=== PATIENT | male | born 1955 | race Caucasian/White ===

== ENCOUNTER 2020-09-19 23:22 | Inpatient (IN) | payer OTHER ==
[~2020-09-19] VITALS: Ht 190.5 cm; Wt 98.0 kg
[2020-09-20] VITALS (63 sets, daily range): BP systolic 98–185; BP diastolic 54–117
[2020-09-20] MEDS ORDERED: HEPARIN-D5W 20,000 UNIT/500 ML 500 ML IV SCH (03:00)
[2020-09-20] MEDS ORDERED: HEPARIN-D5W 20,000 UNIT/500 ML 500 ML IV ONE (03:12)
[2020-09-20 03:50] LABS: BASOPHIL % 0.7 % (0.0-0.2); EOSINOPHIL # 0.2 10^3/uL (0.0-0.2); EOSINOPHIL % 5.8 % (0.0-5.0); LYMPHOCYTES # 1.38 10^3/uL1 (1.0-4.8); LYMPHOCYTES % 33.4 % (24.0-44.0); MEAN CORP HGB 31.3 pg (26-34); MONOCYTES # 0.6 10^3/uL (0.3-0.8); MONOCYTES % 15.5 % (5.0-12.0); NEUTROPHIL # 1.8 10^3/uL (1.8-7.7); NEUTROPHILS % 44.4 % (41.0-85.0); PLATELET COUNT 179 10^3/uL (150-400); RED CELL DISTRIBUTION WIDTH 15.5 % (11.5-14.5)
--- NOTE | 2020-09-20 03:55 | PCM.HP ---
History of Present Illness Reason for Visit: Syncopal episode History of Present Illness Mr. Mendieta is a 64 y/o man with a pmh of CAD s/p multiple stent placements, COPD on continuous oxygen, Atrial fibrillation previously on eliquis, hypertension, depression, hypothyroidism and a AAA repair in 2019 presenting due to a syncopal episode. Patient reports resting in his chair watching tv when he started to feel like he was going to pass out. This happened several times, especially when he stood up and he reports one episode of complete syncopy with no fall. He does fall often at baseline. He took his blood pressure at home and it was low in the 90s systolic. He went to the ED and was found to have elevated troponin. He denies any significant chest pain. Getting up quickly does aggravate the syncopal feeling. Past Medical History Cardiac: AFIB, CAD, HTN Pulmonary: COPD Psychiatric: Depression Rheumatologic: Other (ankylosing spondylitis ) Endocrine: Hypothyroidism Past Social History Smoke: 1 pack per day Alcohol: heavy Drugs: None Review of Systems Constitutional: No: Fever, Chills, Sweats Eyes: No: Pain, Eyelid inflammation ENT: No: Throat pain, Throat swelling Respiratory: No: Cough, Shortness of breath, SOB with excertion Cardiovascular: Palpitations, Lt Headedness Gastrointestinal: No: Nausea, Vomiting, Abdominal Pain Genitourinary: No Dysuria, No Frequency, No Incontinence Musculoskeletal: No: neck pain, back pain Skin: No: Rash, Lesions Neurological: No: Weakness, Change in speech VTE VTE Risk Score VTE Risk: Score 0-1 = Low Risk (Aggressive mobilization; early ambulation; no VTE prophylaxis required) Score 2: Moderate Risk (Intermittent/Pneumatic Compression Device OR Lovenox/Heparin/Coumadin) Score 3-4: High Risk (Intermittent/Pneumatic Compression Device AND Lovenox/Heparin/Coumadin) Score > or =5: Highest Risk (Intermittent/Pneumatic Compression Device AND Lovenox/Heparin/Coumadin) Exam Vital Signs Vital Signs Date Time Temp Pulse Resp B/P (MAP) Pulse Ox O2 Delivery O2 Flow Rate FiO2 09/20/20 03:34 Nasal Cannula 4.00 General Appearance: Alert, Oriented X3, Cooperative, No acute distress HEENT: Atraumatic, PERRLA, EOMI Respiratory: Other (diffuse expiratory wheezing. On supplemental oxygen ) Cardiovascular: Regular rate, No murmurs Abdominal: Normal bowel sounds, Soft Extremities: No cyanosis, No edema Skin: No rash, No breakdown, No lesions Neuro: Normal speech, Normal tone Psych/Mental Status: Mental status NL, Mood NL Assessment/Plan Assessment/Plan Assessment/Plan ASSESSMENT NTEMI CAD s/p multiple stent placements -last stent Sep 2019 Atrial Fibrillation -was previously on Eliquis End stage COPD with supplemental oxygen -2.5 L continuous Hypothyroidism AAA repair Sep 2019 Depression Alcohol use disorder -pint of vodka a day Tobacco use disorder Elevated Creatinine, unknown baseline Plan Start heparin ggt Aspirin daily PRN ativan for alcohol withdrawl, CIWA protocol PRN Duonebs for wheezing Oxygen supplemental as needed Tylenol PRN for pain NPO except for meds Morphine for pain control monitor on tele, now in sinus rhythm Cardiology consulted Code: DYLLAN Mark MD Sep 20, 2020 03:55
[2020-09-20 04:05] LABS: CALCIUM 8.3 mg/dL (8.4-10.5); CARBON DIOXIDE 30.8 mmol/L (20.0-32)
[2020-09-20] MEDS: THIAMINE HCL PO SCH (10:19)
[2020-09-20] MEDS: ASPIRIN PO SCH (10:19)
[2020-09-20] MEDS: FOLIC ACID PO SCH (10:19)
[2020-09-20] MEDS ORDERED: DILAUDID IV PRN (13:30)
[2020-09-20] MEDS ORDERED: FOLIC ACID IV SCH (13:30)
[2020-09-20] MEDS ORDERED: THIAMINE HCL IV SCH (13:30)
[2020-09-20] MEDS ORDERED: NS IV SCH (13:30)
[2020-09-20] MEDS ORDERED: INFUVITE ADULT IV SCH (13:30)
[2020-09-20] MEDS: MORPHINE SULFATE IV PRN ×2 (14:45→18:00)
[2020-09-20] MEDS: ATIVAN IV PRN (18:00)
[2020-09-20] MEDS: LIPITOR PO SCH (21:00)
[2020-09-20] MEDS: COREG PO SCH (21:00)
--- NOTE | 2020-09-20 23:28 | CNH ---
DATE OF CONSULTATION: 09/20/2020 DICTATOR NAME: LENA ADAME DO REASON FOR CONSULTATION: Acute non-ST elevation myocardial infarction/atrial fibrillation with rapid ventricular response. HISTORY OF PRESENT ILLNESS: This is a 64-year-old male who initially presented at the [facility] in [place] with recurrent syncopal episode and shortness of breath. Upon presentation to the ED at the [facility], he was noted to be in atrial fibrillation with rapid ventricular response. Initial EKG done at the [facility] revealed a heart rate of 142 beats per minute. He subsequently chemically converted after digoxin was administered. His troponins were noted to be elevated and so he was transferred over to [facility] for evaluation. He is currently in normal sinus rhythm. He has an extensive cardiac history with multiple PCIs in the past, x7 stents. He also has a history of AAA repair with what he describes as an endovascular stent graft done in 2019. Last PCI was in September 2019 as well. He is currently on heparin drip as well as aspirin 81 mg p.o. every day. PAST MEDICAL HISTORY: Significant for: 1. Paroxysmal atrial fibrillation. 2. Known history of CAD with multiple PCIs in the past, x7 stents. 3. Hypertension. 4. COPD. 5. Depression. 6. Hypothyroidism. 7. Ankylosing spondylitis. PAST SURGICAL HISTORY: 1. Abdominal aortic aneurysm, status post endovascular stent repair in September 2019. 2. Multiple cardiac catheterizations in the past, x7 stents. ALLERGIES: He has no known drug allergies. MEDICATIONS: Medications he takes at home are unknown. FAMILY HISTORY: He denies any family history of premature CAD or sudden cardiac . SOCIAL HISTORY: He admits to tobacco abuse, he smokes 1 pack of cigarettes daily. He admits to alcohol abuse. He drinks a pint of vodka a day. He denies illicit drug use. REVIEW OF SYSTEMS: As per HPI and as per previous records. All systems reviewed and negative for interval change. PHYSICAL EXAMINATION: VITAL SIGNS: Blood pressure is 185/101, respiratory rate is 17, pulse is 80, pulse oximetry is 90% on 4 liters. GENERAL: He is in no apparent distress, alert and oriented x3. HEENT: Normocephalic, atraumatic. Extraocular muscles intact. Pupils equally round, reactive to light and accommodation. CARDIAC: S1, S2. No gallops, murmurs, rubs, or clicks. LUNGS: Clear to auscultation bilaterally. No wheezing, rhonchi or rales. ABDOMEN: Abdomen is distended, positive ascites, nontender, positive bowel sounds. EXTREMITIES: No cyanosis, no clubbing, no edema, +2 pedal pulses palpable bilaterally. NEUROLOGIC: No neurological deficits. Sensation is intact. IMPRESSION: 1. Acute non-ST elevation myocardial infarction. 2. Paroxysmal atrial fibrillation -- currently in normal sinus rhythm. 3. Left ventricular ejection fraction of 45% on 2D echo done this admission. 4. Ischemic cardiomyopathy. 5. Hypertension. 6. Known history of CAD status post multiple PCIs in the past, x7 stents. 7. History of abdominal aortic aneurysm, status post endovascular stent repair. 8. Chronic obstructive pulmonary disease. 9. Depression. 10. Hypothyroidism. RECOMMENDATIONS: This is a 64-year-old male who was transferred from the [facility] to [facility] after he initially presented with atrial fibrillation with rapid ventricular response. He chemically converted after administration of digoxin in the [facility]. He was noted to have spilled troponins and so was transferred here for evaluation. He has a known history of CAD with multiple PCIs in the past, x7 stents. He also has a history of abdominal aortic aneurysm, status post endovascular stent repair. He is currently in normal sinus rhythm. I am going to trend his troponins out. He is also currently on aspirin 81 mg p.o. every day as well as heparin drip. His echocardiogram revealed left ventricular ejection fraction of 45%. He will be started on Coreg 12.5 mg p.o. b.i.d. as well as lisinopril 20 mg p.o. every day. He will also be started on Lipitor 20 mg p.o. at bedtime. He will be kept n.p.o. after midnight for left heart catheterization tomorrow. Eventually, he would benefit from oral anticoagulation for his history of paroxysmal atrial fibrillation given a CHADS2-VASc score of 4. Further recommendations will be made based on his overall clinical course. Fabian ORTIZ D.O. DR: KA/LAL TID: [id number] RECEIPT: [id number]
[2020-09-21] VITALS (71 sets, daily range): BP systolic 101–204; BP diastolic 52–114
[2020-09-21] MEDS: MORPHINE SULFATE IV PRN ×2 (01:52→21:22)
[2020-09-21] MEDS ORDERED: ATIVAN ONE (02:35)
[2020-09-21] MEDS: ATIVAN IV PRN ×2 (02:40→20:00)
[2020-09-21 05:24] LABS: BASOPHIL % 0.7 % (0.0-0.2); LYMPHOCYTES # 0.92 10^3/uL1 (1.0-4.8); LYMPHOCYTES % 21.1 % (24.0-44.0); MONOCYTES # 0.8 10^3/uL (0.3-0.8); MONOCYTES % 17.6 % (5.0-12.0); NEUTROPHIL # 2.6 10^3/uL (1.8-7.7); NEUTROPHILS % 60.4 % (41.0-85.0); PLATELET COUNT 150 10^3/uL (150-400); RED CELL DISTRIBUTION WIDTH 15.4 % (11.5-14.5)
[2020-09-21 05:41] LABS: CALCIUM 7.5 mg/dL (8.4-10.5); CARBON DIOXIDE 28.7 mmol/L (20.0-32)
[2020-09-21] MEDS ORDERED: SUBLIMAZE ONE ×2 (07:26→10:38)
[2020-09-21] MEDS ORDERED: HEPARIN ONE ×3 (07:26→19:12)
[2020-09-21] MEDS ORDERED: CARDENE-NACL 20 MG/200 ML SOLN 200 ML IV ONE (07:27)
[2020-09-21] MEDS ORDERED: XYLOCAINE ONE (07:27)
[2020-09-21] MEDS ORDERED: VERSED ONE (07:27)
[2020-09-21] MEDS ORDERED: NITROGLYCERIN 25MG/D5W 250ML 250 ML IV ONE (07:27)
--- NOTE | 2020-09-21 11:08 | PRM.PN ---
Subjective Subjective Date: Sep 21, 2020 Time: 11:07 Subjective Patient seen and examined this morning. Patient did not sleep all night and is lethargic after given ativan. Resting comfortably in bed on BiPAP. VTE VTE Risk Total Score: >5 VTE Risk Score VTE Risk: Score 0-1 = Low Risk (Aggressive mobilization; early ambulation; no VTE prophylaxis required) Score 2: Moderate Risk (Intermittent/Pneumatic Compression Device OR Lovenox/Heparin/Coumadin) Score 3-4: High Risk (Intermittent/Pneumatic Compression Device AND Lovenox/Heparin/Coumadin) Score > or =5: Highest Risk (Intermittent/Pneumatic Compression Device AND Lovenox/Heparin/Coumadin) Review of Systems Constitutional: No: Fever, Chills, Sweats Eyes: No: Pain, Eyelid inflammation ENT: No: Throat pain, Throat swelling Respiratory: No: Cough, Shortness of breath, SOB with excertion Cardiovascular: Palpitations, Lt Headedness Gastrointestinal: No: Nausea, Vomiting, Abdominal Pain Genitourinary: No Dysuria, No Frequency, No Incontinence Musculoskeletal: No: neck pain, back pain Skin: No: Rash, Lesions Neurological: No: Weakness, Change in speech Objective Vitals and I/O Vital Sign - Last 24 Hours 09/21/20 09/21/20 09/21/20 09/21/20 07:00 07:15 07:27 07:27 Pulse 87 87 77 77 Resp 10 8 20 22 B/P (MAP) 156/86 (109) 149/79 (102) Pulse Ox 96 96 92 92 O2 Delivery Bi Pap Bi Pap S/T Bi-pap FiO2 40 40 09/21/20 09/21/20 09/21/20 09/21/20 07:30 07:45 08:00 08:15 Pulse 78 75 71 68 Resp 7 10 10 9 B/P (MAP) 130/87 (101) 126/63 (84) 150/66 (94) 114/77 (89) Pulse Ox 91 91 91 93 O2 Delivery Bi Pap Bi Pap Bi Pap Bi Pap 09/21/20 09/21/20 09/21/20 09/21/20 08:30 08:45 08:56 09:00 Temp 97.3 Pulse 66 65 63 Resp 10 10 9 B/P (MAP) 119/64 (82) 124/66 (85) 126/71 (89) Pulse Ox 94 95 95 O2 Delivery Bi Pap Bi Pap Bi-pap Bi Pap O2 Flow Rate 4.00 09/21/20 09/21/20 09/21/20 09/21/20 09:15 09:30 09:45 10:00 Pulse 59 66 63 62 Resp 11 11 10 11 B/P (MAP) 130/86 (101) 155/106 (122) 143/83 (103) 140/74 (96) Pulse Ox 98 96 96 96 O2 Delivery Bi Pap Bi Pap Bi Pap Bi Pap 09/21/20 09/21/20 10:15 10:17 Pulse 71 73 Resp 11 18 B/P (MAP) 164/101 (122) Pulse Ox 97 96 O2 Delivery Bi Pap Bi Pap General: Alert, Oriented X3, Cooperative, No acute distress HEENT: Atraumatic, PERRLA, EOMI Lungs: Other (diffuse expiratory wheezing. On supplemental oxygen ) Heart: Regular rate, No murmurs Abdomen: Normal bowel sounds, Soft Extremities: No cyanosis, No edema Neuro: Normal speech, Normal tone Psych/Mental Status: Mental status NL, Mood NL All Results(Lab/Rad) Laboratory Tests Test 09/20/20 13:25 09/20/20 18:25 09/20/20 21:30 09/20/20 22:28 Activated Partial Thromboplast Time 32.7 SEC 34.2 SEC 29.0 SEC Troponin I 0.16 ng/mL Test 09/21/20 02:15 09/21/20 04:55 Activated Partial Thromboplast Time 32.9 SEC Troponin I 0.17 ng/mL White Blood Count 4.4 10^3/uL Red Blood Count 4.06 10^6/uL Hemoglobin 12.6 g/dL Hematocrit 40.7 % Mean Corpuscular Volume 100.2 fL Mean Corpuscular Hemoglobin 31.0 pg Mean Corpuscular Hemoglobin Concent 31.0 g/dL Red Cell Distribution Width 15.4 % Platelet Count 150 10^3/uL Mean Platelet Volume 11.0 fL Neutrophils (%) (Auto) 60.4 % Lymphocytes (%) (Auto) 21.1 % Monocytes (%) (Auto) 17.6 % Neutrophils # (Auto) 2.6 10^3/uL Lymphocytes # (Auto) 0.92 10^3/uL1 Monocytes # (Auto) 0.8 10^3/uL Absolute Immature Granulocyte (auto 0.01 10^3 u/L Absolute Eosinophils (auto) 0.0 10^3/uL Immature Granulocytes % 0.20 % Eosinophils % 0.0 % Basophils % 0.7 % Basophils # 0.0 10^3/uL Sodium Level 137 mmol/L Potassium Level 4.0 mmol/L Chloride Level 104.0 mmol/L Carbon Dioxide Level 28.7 mmol/L Anion Gap 8.3 Blood Urea Nitrogen 17 mg/dL Creatinine 0.77 mg/dL Estimated GFR () 122.3 Est GFR (CKD-EPI)(Non-Afr Dominican) 101.1 BUN/Creatinine Ratio 22.0 Glucose Level 112 mg/dL Calcium Level 7.5 mg/dL Total Bilirubin 0.4 mg/dL Aspartate Amino Transf (AST/SGOT) 20 U/L Alanine Aminotransferase (ALT/SGPT) 20 U/L Alkaline Phosphatase 65 U/L Total Protein 6.3 g/dL Albumin 3.0 g/dL Globulin 3.3 Albumin/Globulin Ratio 0.909 Current Medications Medications (Trade) Dose Ordered Sig/Gala Route PRN Reason Start Time Stop Time Status Last Admin Dose Admin Heparin Sodium/ Dextrose 500 ml @ ud STK-MED ONCE IV 09/20/20 03:12 09/20/20 03:12 DC Aspirin (Aspirin) 81 mg DAILY PO 09/20/20 09:00 10/20/20 08:59 09/20/20 10:19 Lorazepam (Ativan) 1 mg Q4H PRN IV CIWA score >8 09/20/20 04:00 10/20/20 03:59 09/21/20 02:40 Thiamine HCl (Thiamine HCl) 100 mg DAILY PO 09/20/20 09:00 10/20/20 08:59 09/20/20 10:19 Folic Acid (Folic Acid) 1 mg DAILY PO 09/20/20 09:00 10/20/20 08:59 09/20/20 10:19 Albuterol/ Ipratropium (Duo 0.5-3(2.5) Mg/3 ml) 3 ml RTQ4 PRN IH Shortness of breath/wheezing 09/20/20 04:00 10/20/20 03:59 Heparin Sodium/ Dextrose 500 ml @ 0 mls/hr TITRATE IV 09/20/20 03:00 10/20/20 02:59 09/20/20 04:26 Thiamine HCl 100 mg/Folic Acid 1 mg/Multivit Infusn,Adult 4,Vit K 10 ml/ Sodium Chloride 1,011.2 ml @ 100 mls/ hr Q10H7M IV 09/20/20 13:30 09/20/20 23:36 DC 09/20/20 13:30 Morphine Sulfate (Morphine Sulfate) 2 mg Q4H PRN IV PAIN 4 - 6 09/20/20 13:30 10/20/20 13:29 09/21/20 01:52 Hydromorphone HCl (Dilaudid) 0.5 mg Q6HR PRN IV PAIN 7 - 10 09/20/20 13:30 10/20/20 13:29 09/21/20 01:30 Carvedilol (Coreg) 12.5 mg BID PO 09/20/20 21:00 10/20/20 20:59 09/20/20 21:00 Lisinopril (Zestril) 20 mg DAILY PO 09/21/20 09:00 10/21/20 08:59 Atorvastatin Calcium (Lipitor) 20 mg HS PO 09/20/20 21:00 10/20/20 20:59 09/20/20 21:00 Lorazepam (Ativan) 2 mg STK-MED ONCE .ROUTE 09/21/20 02:35 09/21/20 02:35 DC Heparin Sodium/ Sodium Chloride 1,500 ml @ ud STK-MED ONCE IV 09/21/20 07:26 09/21/20 07:27 DC Heparin Sodium (Porcine) (Heparin) 5,000 unit STK-MED ONCE .ROUTE 09/21/20 07:26 09/21/20 07:27 DC Fentanyl Citrate (Sublimaze) 50 mcg STK-MED ONCE .ROUTE 09/21/20 07:26 09/21/20 07:27 DC Lidocaine HCl (Xylocaine) 20 mg STK-MED ONCE .ROUTE 09/21/20 07:27 09/21/20 07:27 DC Nitroglycerin/ Dextrose 250 ml @ ud STK-MED ONCE IV 09/21/20 07:27 09/21/20 07:27 DC Fentanyl Citrate (Sublimaze) 50 mcg STK-MED ONCE .ROUTE 09/21/20 10:38 09/21/20 10:39 DC Course Sepsis Screening Results: Posi: POSITIVE Sepsis Qualifier/Stage: SEPSIS RISK Vitals & review Data Vital Sign - Last 24 Hours 09/21/20 09/21/20 09/21/20 09/21/20 07:00 07:15 07:27 07:27 Pulse 87 87 77 77 Resp 10 8 22 B/P (MAP) 156/86 (109) 149/79 (102) Pulse Ox 96 96 92 92 O2 Delivery Bi Pap Bi Pap S/T Bi-pap FiO2 40 40 09/21/20 09/21/20 09/21/20 09/21/20 07:30 07:45 08:00 08:15 Pulse 78 75 71 68 Resp 7 10 10 9 B/P (MAP) 130/87 (101) 126/63 (84) 150/66 (94) 114/77 (89) Pulse Ox 91 91 91 93 O2 Delivery Bi Pap Bi Pap Bi Pap Bi Pap 09/21/20 09/21/20 09/21/20 09/21/20 08:30 08:45 08:56 09:00 Temp 97.3 Pulse 66 65 63 Resp 10 10 9 B/P (MAP) 119/64 (82) 124/66 (85) 126/71 (89) Pulse Ox 94 95 95 O2 Delivery Bi Pap Bi Pap Bi-pap Bi Pap O2 Flow Rate 4.00 09/21/20 09/21/20 09/21/20 09/21/20 09:15 09:30 09:45 10:00 Pulse 59 66 63 62 Resp 11 11 10 11 B/P (MAP) 130/86 (101) 155/106 (122) 143/83 (103) 140/74 (96) Pulse Ox 98 96 96 96 O2 Delivery Bi Pap Bi Pap Bi Pap Bi Pap 09/21/20 09/21/20 10:15 10:17 Pulse 71 73 Resp 11 18 B/P (MAP) 164/101 (122) Pulse Ox 97 96 O2 Delivery Bi Pap Bi Pap Laboratory Tests Test 09/20/20 03:20 09/20/20 08:15 09/20/20 13:25 09/20/20 18:25 White Blood Count 4.1 10^3/uL Red Blood Count 4.35 10^6/uL Hemoglobin 13.6 g/dL Hematocrit 43.0 % Mean Corpuscular Volume 98.9 fL Mean Corpuscular Hemoglobin 31.3 pg Mean Corpuscular Hemoglobin Concent 31.6 g/dL Red Cell Distribution Width 15.5 % Platelet Count 179 10^3/uL Mean Platelet Volume 11.0 fL Neutrophils (%) (Auto) 44.4 % Lymphocytes (%) (Auto) 33.4 % Monocytes (%) (Auto) 15.5 % Neutrophils # (Auto) 1.8 10^3/uL Lymphocytes # (Auto) 1.38 10^3/uL1 Monocytes # (Auto) 0.6 10^3/uL Absolute Immature Granulocyte (auto 0.01 10^3 u/L Absolute Eosinophils (auto) 0.2 10^3/uL Immature Granulocytes % 0.20 % Eosinophils % 5.8 % Basophils % 0.7 % Basophils # 0.0 10^3/uL Sodium Level 134 mmol/L Potassium Level 4.6 mmol/L Chloride Level 100.0 mmol/L Carbon Dioxide Level 30.8 mmol/L Anion Gap 7.8 Blood Urea Nitrogen 23 mg/dL Creatinine 1.41 mg/dL Estimated GFR () 60.8 Est GFR (CKD-EPI)(Non-Afr Dominican) 50.3 BUN/Creatinine Ratio 16.0 Glucose Level 118 mg/dL Calcium Level 8.3 mg/dL Total Bilirubin 0.7 mg/dL Aspartate Amino Transf (AST/SGOT) 31 U/L Alanine Aminotransferase (ALT/SGPT) 21 U/L Alkaline Phosphatase 75 U/L Troponin I 0.42 ng/mL Total Protein 6.5 g/dL Albumin 3.1 g/dL Globulin 3.4 Albumin/Globulin Ratio 0.911 Triglycerides Level 63 mg/dL Cholesterol Level 162 mg/dL LDL Cholesterol, Calculated 64.4 VLDL Cholesterol, Calculated 12.6 HDL Cholesterol 85 mg/dL Cholesterol Ratio (LDL/HDL) 0.7 Cholesterol/HDL Ratio [id number] Activated Partial Thromboplast Time 30.3 SEC 32.7 SEC 34.2 SEC Test 09/20/20 21:30 09/20/20 22:28 09/21/20 02:15 09/21/20 04:55 Troponin I 0.16 ng/mL 0.17 ng/mL Activated Partial Thromboplast Time 29.0 SEC 32.9 SEC White Blood Count 4.4 10^3/uL Red Blood Count 4.06 10^6/uL Hemoglobin 12.6 g/dL Hematocrit 40.7 % Mean Corpuscular Volume 100.2 fL Mean Corpuscular Hemoglobin 31.0 pg Mean Corpuscular Hemoglobin Concent 31.0 g/dL Red Cell Distribution Width 15.4 % Platelet Count 150 10^3/uL Mean Platelet Volume 11.0 fL Neutrophils (%) (Auto) 60.4 % Lymphocytes (%) (Auto) 21.1 % Monocytes (%) (Auto) 17.6 % Neutrophils # (Auto) 2.6 10^3/uL Lymphocytes # (Auto) 0.92 10^3/uL1 Monocytes # (Auto) 0.8 10^3/uL Absolute Immature Granulocyte (auto 0.01 10^3 u/L Absolute Eosinophils (auto) 0.0 10^3/uL Immature Granulocytes % 0.20 % Eosinophils % 0.0 % Basophils % 0.7 % Basophils # 0.0 10^3/uL Sodium Level 137 mmol/L Potassium Level 4.0 mmol/L Chloride Level 104.0 mmol/L Carbon Dioxide Level 28.7 mmol/L Anion Gap 8.3 Blood Urea Nitrogen 17 mg/dL Creatinine 0.77 mg/dL Estimated GFR () 122.3 Est GFR (CKD-EPI)(Non-Afr Dominican) 101.1 BUN/Creatinine Ratio 22.0 Glucose Level 112 mg/dL Calcium Level 7.5 mg/dL Total Bilirubin 0.4 mg/dL Aspartate Amino Transf (AST/SGOT) 20 U/L Alanine Aminotransferase (ALT/SGPT) 20 U/L Alkaline Phosphatase 65 U/L Total Protein 6.3 g/dL Albumin 3.0 g/dL Globulin 3.3 Albumin/Globulin Ratio 0.909 Current Medications Medications (Trade) Dose Ordered Sig/Gala PRN Reason Start Time Stop Time Status Last Admin Albuterol/ Ipratropium (Duo 0.5-3(2.5) Mg/3 ml) 3 ml RTQ4 PRN Shortness of breath/wheezing 09/20/20 04:00 10/20/20 03:59 Aspirin (Aspirin) 81 mg DAILY 09/20/20 09:00 10/20/20 08:59 09/20/20 10:19 Atorvastatin Calcium (Lipitor) 20 mg HS 09/20/20 21:00 10/20/20 20:59 09/20/20 21:00 Carvedilol (Coreg) 12.5 mg BID 09/20/20 21:00 10/20/20 20:59 09/20/20 21:00 Folic Acid (Folic Acid) 1 mg DAILY 09/20/20 09:00 10/20/20 08:59 09/20/20 10:19 Heparin Sodium/ Dextrose 500 ml @ 0 mls/hr TITRATE 09/20/20 03:00 10/20/20 02:59 09/20/20 04:26 Hydromorphone HCl (Dilaudid) 0.5 mg Q6HR PRN PAIN 7 - 10 09/20/20 13:30 10/20/20 13:29 09/21/20 01:30 Lisinopril (Zestril) 20 mg DAILY 09/21/20 09:00 10/21/20 08:59 Lorazepam (Ativan) 1 mg Q4H PRN CIWA score >8 09/20/20 04:00 10/20/20 03:59 09/21/20 02:40 Morphine Sulfate (Morphine Sulfate) 2 mg Q4H PRN PAIN 4 - 6 09/20/20 13:30 10/20/20 13:29 09/21/20 01:52 Thiamine HCl (Thiamine HCl) 100 mg DAILY 09/20/20 09:00 10/20/20 08:59 09/20/20 10:19 LEVEL 1 SEPSIS INFECTION CRITE: Cough/Shortness of Breath LEVEL 2-SIRS (LIST ALL THAT AP: None/Not assessed Cardiovascular Evidence: Not Assessed or None Hematologic Evidence: None/Not assessed Hepatic Evidence: None/Not assessed Metabolic Evidence: None/Not assessed Neurological Evidence: None/Not assessed Respiratory Evidence: New Prescr. BIPAP Renal Evidence: None/Not assessed O2 Sat by Pulse Oximetry: 96 Oxygen Flow Rate: 4.00 Assessment/Plan Assessment/Plan Plan ASSESSMENT NTEMI CAD s/p multiple stent placements -last stent Sep 2019 Atrial Fibrillation -was previously on Eliquis End stage COPD with supplemental oxygen -2.5 L continuous Hypothyroidism AAA repair Sep 2019 Depression Alcohol use disorder -pint of vodka a day Tobacco use disorder Elevated Creatinine, unknown baseline Plan Start heparin ggt Aspirin daily PRN ativan for alcohol withdrawl, CIWA protocol PRN Duonebs for wheezing Oxygen supplemental as needed Tylenol PRN for pain NPO except for meds Morphine for pain control monitor on tele, now in sinus rhythm Cardiology consulted Code: Full Dispo: [facility] this afternoon DYLLAN HANSEN MD Sep 21, 2020 11:08
[2020-09-21] MEDS: COREG PO SCH ×2 (11:52→21:00)
[2020-09-21] MEDS: ZESTRIL PO SCH (11:52)
[2020-09-21] MEDS: FOLIC ACID PO SCH (11:52)
[2020-09-21] MEDS: ASPIRIN PO SCH (11:52)
[2020-09-21] MEDS: THIAMINE HCL PO SCH (11:52)
[2020-09-21] MEDS: DUO 0.5-3(2.5) MG/3 ML IH PRN (16:18)
[2020-09-21] MEDS ORDERED: NS 1000ML 1,000 ML ONE (17:30)
[2020-09-21] MEDS ORDERED: PLAVIX ONE (19:09)
[2020-09-21] MEDS ORDERED: ASPIRIN ONE (19:09)
[2020-09-21] MEDS: LIPITOR PO SCH (21:00)
--- NOTE | 2020-09-21 21:24 | CCRH ---
DATE OF SERVICE: 09/21/2020 DICTATOR NAME: LENA ADAME, CARDIAC CATHETERIZATION INDICATIONS: Cardiomyopathy/atrial fibrillation. This is a 64-year-old male who was transferred out to [facility] from the [facility] with atrial fibrillation and rapid ventricular response. Echo shows left ventricular ejection fraction of 45%. He was then set up for left heart catheterization after informed consents were obtained. PROCEDURES PERFORMED: 1. Severe stenosis (80%) of the obtuse marginal 1 artery, status post successful percutaneous coronary intervention with a Resolute [place] 2.25 x 18 mm drug-eluting stent. 2. Selective coronary angiography. 3. Left ventriculography. 4. Hemostasis established using a TR band. DESCRIPTION OF PROCEDURE: Access was obtained using a 6-[place] glide sheath to cannulate the right radial artery. Diagnostic angiography was then carried out using a [place] 4 catheter to engage the left main. Left main was noted to be angiographically normal. It trifurcates into a left anterior descending artery, a ramus intermedius branch and a left circumflex artery. The left anterior descending artery is noted to have a 40-50% in-stent restenotic lesion in the proximal segment. It runs in the interventricular groove reaching the apex to form a type 2 LAD. It gives off 2 diagonal branches that are noted to have mild luminal irregularities. The stents in the mid segment of the LAD are noted to be widely patent. The ramus intermedius branch has a proximal 40-50% lesion. The remaining segments of the ramus intermedius branch are noted to be with mild luminal irregularities. The lesion in the proximal segment of the ramus intermedius is in-stent restenotic lesion. Left circumflex artery is noted to be nondominant. It gives off a large caliber obtuse marginal 1 branch that has a proximal 80% lesion. The [place] 4 catheter was then used to engage the RCA. RCA angiography showed a dominant RCA with a proximal 50% lesion. The RCA bifurcates distally to a right posterolateral branch and a right posterior descending artery. Both branches are noted to have mild luminal irregularities. There is a stent in the mid RCA, which is noted to have mild luminal irregularities. The [place] 4 catheter was then used to cross the aortic valve into the left ventricle. Left ventriculography was performed. LVEF was noted to be 45%. LVEDP was noted to be 10. Upon pullback of the [place] 4 catheter, there was no gradient across the aortic valve. At this point, I elected to intervene in the obtuse marginal 1 branch. The [place] 4 catheter was then exchanged for an EBU 3.5 guide catheter, which was used to engage the left main. A Run[place] wire was then introduced into the left circumflex artery crossing the lesion in the obtuse marginal 1 branch. The lesion was then treated with direct stenting using a Resolute [place] 2.25 x 18 mm drug-eluting stent. The stent was successfully deployed. [place] 3 flow was maintained in the left circumflex artery. The stent was noted to be well opposed to the wall of the vessel with 0% residual stenosis. The wire and the guide were subsequently removed and hemostasis was established using a TR band. The patient left the prosthetics lab technician in stable condition. There were no complications. IMPRESSION: 1. Severe stenosis (80%) of the obtuse marginal 1 artery, status post successful percutaneous coronary intervention with a drug-eluting stent. 2. Selective coronary angiography. 3. Left ventriculography. 4. Left ventricular ejection fraction of 45%. 5. Left ventricular end-diastolic pressure of 10. 6. Ischemic cardiomyopathy. 7. Hemostasis established using a TR band. RECOMMENDATIONS: The patient is to remain on dual antiplatelet therapy as well as statin therapy going forward. Lifestyle modification factors including alcohol cessation have been strongly advised. He can be discharged home tomorrow from a cardiac standpoint to follow up with me in the office in 2 to 3 weeks. Fabian ORTIZ D.O. DR: SEMAJ TID: [id number] RECEIPT: [id number]
[2020-09-21] MEDS ORDERED: DUO 0.5-3(2.5) MG/3 ML IH PRN (23:30)
[2020-09-22] VITALS (17 sets, daily range): BP systolic 101–171; BP diastolic 47–99
[2020-09-22] MEDS: MORPHINE SULFATE IV PRN
[2020-09-22] MEDS: ATIVAN IV PRN
[2020-09-22] MEDS: DUO 0.5-3(2.5) MG/3 ML IH PRN (00:35)
[2020-09-22 04:56] LABS: BASOPHIL % 0.9 % (0.0-0.2); EOSINOPHIL # 0.1 10^3/uL (0.0-0.2); EOSINOPHIL % 1.4 % (0.0-5.0); LYMPHOCYTES # 0.92 10^3/uL1 (1.0-4.8); LYMPHOCYTES % 21.2 % (24.0-44.0); MEAN CORP HGB 32.1 pg (26-34); MONOCYTES # 0.8 10^3/uL (0.3-0.8); MONOCYTES % 18.7 % (5.0-12.0); NEUTROPHIL # 2.5 10^3/uL (1.8-7.7); NEUTROPHILS % 57.8 % (41.0-85.0); PLATELET COUNT 110 10^3/uL (150-400); RED CELL DISTRIBUTION WIDTH 15.5 % (11.5-14.5)
[2020-09-22 05:14] LABS: CALCIUM 6.1 mg/dL (8.4-10.5); CARBON DIOXIDE 27.2 mmol/L (20.0-32)
[2020-09-22] MEDS ORDERED: POTASSIUM CHLORIDE PO STA (08:23)
[2020-09-22] MEDS: COREG PO SCH (08:34)
[2020-09-22] MEDS: ASPIRIN PO SCH (08:34)
--- NOTE | 2020-09-22 08:34 | NUR ---
DISCHARGE PLANNING CM VISITED WITH PATIENT ABOUT DISCHARGE PLANS AND NEEDS. PATIENT CURRENTLY [email or web address] WITH SPOUSE AND IND WITH ALL ADL. PATIENT SEES DR Luiza VICTORIA AND [email or web address]. PATIENT HAS HOME O2 THAT HE WEARS NEEDED @2 1/2L AND HAS A NEBULIZER, WALKER, WHEELCHAIR, AND SHOWER CHAIR. EDUCATED ON SERVICES PROVIDED AND DENIES ANY NEEDS AND SIGNS [facility]. PATIENT PLANS TO DISCHARGE HOME WITH SPOUSE AND SELF CARE @DISCHARGE.
[2020-09-22] MEDS: THIAMINE HCL PO SCH (08:35)
[2020-09-22] MEDS: ZESTRIL PO SCH (08:35)
[2020-09-22] MEDS: FOLIC ACID PO SCH (08:35)
[2020-09-22] MEDS ORDERED: PLAVIX PO SCH (09:00)
[2020-09-22] MEDS ORDERED: ASPI-667 PO (10:25)
[2020-09-22] MEDS ORDERED: CLOP75TA PO (10:25)
[2020-09-22] MEDS ORDERED: Thiamine Hcl PO (10:25)
[2020-09-22] MEDS ORDERED: Folic Acid PO (10:25)
[2020-09-22] MEDS ORDERED: ATOR20TA PO (10:25)
[2020-09-22] MEDS ORDERED: CARV12.5 PO (10:25)
[2020-09-22] MEDS ORDERED: LISI20TA21 PO (10:25)
--- NOTE | 2020-09-22 11:03 | PRM.DC ---
Discharge Summary Date of Discharge: Sep 22, 2020 Time of Request to Discharge: 10:00 Reason for Visit: Elevated troponin Hospital Course 64-year-old male who was transferred from the [facility] to [facility] after he initially presented with atrial fibrillation with rapid ventricular response. He chemically converted after administration of digoxin in the [facility]. He was noted to have spilled troponins and so was transferred here for evaluation. He has a known history of CAD with multiple PCIs in the past, x7 stents. Patient was seen by technology sales consultant, patient underwent left heart cath: Assessment and recommendations as per technology sales consultant:1. Severe stenosis (80%) of the obtuse marginal 1 artery, status post successful percutaneous coronary intervention with a drug-eluting stent. 2. Selective coronary angiography. 3. Left ventriculography. 4. Left ventricular ejection fraction of 45%. 5. Left ventricular end-diastolic pressure of 10. 6. Ischemic cardiomyopathy. 7. Hemostasis established using a TR band. RECOMMENDATIONS: The patient is to remain on dual antiplatelet therapy as well as statin therapy going forward. Lifestyle modification factors including alcohol cessation have been strongly advised. He can be discharged home tomorrow from a cardiac standpoint to follow up with me in the office in 2 to 3 weeks. Today patient is feeling fine. Denies chest pain. Patient will be discharged home and follow-up in technology sales consultant office in 2 to 3 weeks. Patient will be discharged home. Patient discharged in stable condition. Activity As per technology sales consultant recommendation.t Diet heart healthy. Exam/Vitals Blood pressure 120/60, heart rate 60, respiratory rate 14, temperature 98. General: Alert, Oriented X3 HEENT: Atraumatic, PERRLA Neck: Supple, No JVD Lungs: Clear to auscultation, Normal air movement Heart: Regular rate, Normal S1, Normal S2 Abdomen: Normal bowel sounds, Soft, No tenderness Extremities: No clubbing, No cyanosis Skin: No breakdown Neuro: Normal gait, Normal speech Psych/Mental Status: Mental status NL, Mood NL Scheduled Aspirin (Aspirin), 81 MG PO DAILY Atorvastatin 20MG (Lipitor 20MG), 20 MG PO HS Carvedilol 12.5MG (Coreg 12.MG), 12.5 MG PO BID Clopidogrel Bisulfate (Clopidogrel), 75 MG PO DAILY Lisinopril (Lisinopril), 20 MG PO DAILY [Folic Acid], 1 MG PO DAILY [Thiamine Hcl], 100 MG PO DAILY Sepsis Evaluation @ Discharge Vital Sign - Last 24 Hours 09/21/20 09/21/20 09/21/20 09/21/20 07:00 07:15 07:27 07:27 Pulse 87 87 77 77 Resp 10 8 20 22 B/P (MAP) 156/86 (109) 149/79 (102) Pulse Ox 96 96 92 92 O2 Delivery Bi Pap Bi Pap S/T Bi-pap FiO2 40 40 09/21/20 09/21/20 09/21/20 09/21/20 07:30 07:45 08:00 08:15 Pulse 78 75 71 68 Resp 7 10 10 9 B/P (MAP) 130/87 (101) 126/63 (84) 150/66 (94) 114/77 (89) Pulse Ox 91 91 91 93 O2 Delivery Bi Pap Bi Pap Bi Pap Bi Pap 09/21/20 09/21/20 09/21/20 09/21/20 08:30 08:45 08:56 09:00 Temp 97.3 Pulse 66 65 63 Resp 10 10 9 B/P (MAP) 119/64 (82) 124/66 (85) 126/71 (89) Pulse Ox 94 95 95 O2 Delivery Bi Pap Bi Pap Bi-pap Bi Pap O2 Flow Rate 4.00 09/21/20 09/21/20 09/21/20 09/21/20 09:15 09:30 09:45 10:00 Pulse 59 66 63 62 Resp 11 11 10 11 B/P (MAP) 130/86 (101) 155/106 (122) 143/83 (103) 140/74 (96) Pulse Ox 98 96 96 96 O2 Delivery Bi Pap Bi Pap Bi Pap Bi Pap 09/21/20 09/21/20 10:15 10:17 Pulse 71 73 Resp 11 18 B/P (MAP) 164/101 (122) Pulse Ox 97 96 O2 Delivery Bi Pap Bi Pap Laboratory Tests Test 09/20/20 03:20 09/20/20 08:15 09/20/20 13:25 09/20/20 18:25 White Blood Count 4.1 10^3/uL Red Blood Count 4.35 10^6/uL Hemoglobin 13.6 g/dL Hematocrit 43.0 % Mean Corpuscular Volume 98.9 fL Mean Corpuscular Hemoglobin 31.3 pg Mean Corpuscular Hemoglobin Concent 31.6 g/dL Red Cell Distribution Width 15.5 % Platelet Count 179 10^3/uL Mean Platelet Volume 11.0 fL Neutrophils (%) (Auto) 44.4 % Lymphocytes (%) (Auto) 33.4 % Monocytes (%) (Auto) 15.5 % Neutrophils # (Auto) 1.8 10^3/uL Lymphocytes # (Auto) 1.38 10^3/uL1 Monocytes # (Auto) 0.6 10^3/uL Absolute Immature Granulocyte (auto 0.01 10^3 u/L Absolute Eosinophils (auto) 0.2 10^3/uL Immature Granulocytes % 0.20 % Eosinophils % 5.8 % Basophils % 0.7 % Basophils # 0.0 10^3/uL Sodium Level 134 mmol/L Potassium Level 4.6 mmol/L Chloride Level 100.0 mmol/L Carbon Dioxide Level 30.8 mmol/L Anion Gap 7.8 Blood Urea Nitrogen 23 mg/dL Creatinine 1.41 mg/dL Estimated GFR () 60.8 Est GFR (CKD-EPI)(Non-Afr [place]) 50.3 BUN/Creatinine Ratio 16.0 Glucose Level 118 mg/dL Calcium Level 8.3 mg/dL Total Bilirubin 0.7 mg/dL Aspartate Amino Transf (AST/SGOT) 31 U/L Alanine Aminotransferase (ALT/SGPT) 21 U/L Alkaline Phosphatase 75 U/L Troponin I 0.42 ng/mL Total Protein 6.5 g/dL Albumin 3.1 g/dL Globulin 3.4 Albumin/Globulin Ratio 0.911 Triglycerides Level 63 mg/dL Cholesterol Level 162 mg/dL LDL Cholesterol, Calculated 64.4 VLDL Cholesterol, Calculated 12.6 HDL Cholesterol 85 mg/dL Cholesterol Ratio (LDL/HDL) 0.7 Cholesterol/HDL Ratio [id number] Activated Partial Thromboplast Time 30.3 SEC 32.7 SEC 34.2 SEC Test 09/20/20 21:30 09/20/20 22:28 09/21/20 02:15 09/21/20 04:55 Troponin I 0.16 ng/mL 0.17 ng/mL Activated Partial Thromboplast Time 29.0 SEC 32.9 SEC White Blood Count 4.4 10^3/uL Red Blood Count 4.06 10^6/uL Hemoglobin 12.6 g/dL Hematocrit 40.7 % Mean Corpuscular Volume 100.2 fL Mean Corpuscular Hemoglobin 31.0 pg Mean Corpuscular Hemoglobin Concent 31.0 g/dL Red Cell Distribution Width 15.4 % Platelet Count 150 10^3/uL Mean Platelet Volume 11.0 fL Neutrophils (%) (Auto) 60.4 % Lymphocytes (%) (Auto) 21.1 % Monocytes (%) (Auto) 17.6 % Neutrophils # (Auto) 2.6 10^3/uL Lymphocytes # (Auto) 0.92 10^3/uL1 Monocytes # (Auto) 0.8 10^3/uL Absolute Immature Granulocyte (auto 0.01 10^3 u/L Absolute Eosinophils (auto) 0.0 10^3/uL Immature Granulocytes % 0.20 % Eosinophils % 0.0 % Basophils % 0.7 % Basophils # 0.0 10^3/uL Sodium Level 137 mmol/L Potassium Level 4.0 mmol/L Chloride Level 104.0 mmol/L Carbon Dioxide Level 28.7 mmol/L Anion Gap 8.3 Blood Urea Nitrogen 17 mg/dL Creatinine 0.77 mg/dL Estimated GFR () 122.3 Est GFR (CKD-EPI)(Non-Afr [place]) 101.1 BUN/Creatinine Ratio 22.0 Glucose Level 112 mg/dL Calcium Level 7.5 mg/dL Total Bilirubin 0.4 mg/dL Aspartate Amino Transf (AST/SGOT) 20 U/L Alanine Aminotransferase (ALT/SGPT) 20 U/L Alkaline Phosphatase 65 U/L Total Protein 6.3 g/dL Albumin 3.0 g/dL Globulin 3.3 Albumin/Globulin Ratio 0.909 Current Medications Medications (Trade) Dose Ordered Sig/Gala PRN Reason Start Time Stop Time Status Last Admin Albuterol/ Ipratropium (Duo 0.5-3(2.5) Mg/3 ml) 3 ml RTQ4 PRN Shortness of breath/wheezing 09/20/20 04:00 10/20/20 03:59 Aspirin (Aspirin) 81 mg DAILY 09/20/20 09:00 10/20/20 08:59 09/20/20 10:19 Atorvastatin Calcium (Lipitor) 20 mg HS 09/20/20 21:00 10/20/20 20:59 09/20/20 21:00 Carvedilol (Coreg) 12.5 mg BID 09/20/20 21:00 10/20/20 20:59 09/20/20 21:00 Folic Acid (Folic Acid) 1 mg DAILY 09/20/20 09:00 10/20/20 08:59 09/20/20 10:19 Heparin Sodium/ Dextrose 500 ml @ 0 mls/hr TITRATE 09/20/20 03:00 10/20/20 02:59 09/20/20 04:26 Hydromorphone HCl (Dilaudid) 0.5 mg Q6HR PRN PAIN 7 - 10 09/20/20 13:30 10/20/20 13:29 09/21/20 01:30 Lisinopril (Zestril) 20 mg DAILY 09/21/20 09:00 10/21/20 08:59 Lorazepam (Ativan) 1 mg Q4H PRN CIWA score >8 09/20/20 04:00 10/20/20 03:59 09/21/20 02:40 Morphine Sulfate (Morphine Sulfate) 2 mg Q4H PRN PAIN 4 - 6 09/20/20 13:30 10/20/20 13:29 09/21/20 01:52 Thiamine HCl (Thiamine HCl) 100 mg DAILY 09/20/20 09:00 10/20/20 08:59 09/20/20 10:19 Course Sepsis Screening Results: Posi: POSITIVE Sepsis Qualifier/Stage: SEPSIS RISK Vitals & review Data Vital Sign - Last 24 Hours 09/21/20 09/21/20 09/21/20 09/21/20 07:00 07:15 07:27 07:27 Pulse 87 87 77 77 Resp 10 8 20 22 B/P (MAP) 156/86 (109) 149/79 (102) Pulse Ox 96 96 92 92 O2 Delivery Bi Pap Bi Pap S/T Bi-pap FiO2 40 40 09/21/20 09/21/20 09/21/20 09/21/20 07:30 07:45 08:00 08:15 Pulse 78 75 71 68 Resp 7 10 10 9 B/P (MAP) 130/87 (101) 126/63 (84) 150/66 (94) 114/77 (89) Pulse Ox 91 91 91 93 O2 Delivery Bi Pap Bi Pap Bi Pap Bi Pap 8/9/21 09/21/20 09/21/20 09/21/20 08:30 08:45 08:56 09:00 Temp 97.3 Pulse 66 65 63 Resp 10 10 9 B/P (MAP) 119/64 (82) 124/66 (85) 126/71 (89) Pulse Ox 94 95 95 O2 Delivery Bi Pap Bi Pap Bi-pap Bi Pap O2 Flow Rate 4.00 09/21/20 09/21/20 09/21/20 09/21/20 09:15 09:30 09:45 10:00 Pulse 59 66 63 62 Resp 11 11 10 11 B/P (MAP) 130/86 (101) 155/106 (122) 143/83 (103) 140/74 (96) Pulse Ox 98 96 96 96 O2 Delivery Bi Pap Bi Pap Bi Pap Bi Pap 09/21/20 09/21/20 10:15 10:17 Pulse 71 73 Resp 11 18 B/P (MAP) 164/101 (122) Pulse Ox 97 96 O2 Delivery Bi Pap Bi Pap Laboratory Tests Test 09/20/20 03:20 09/20/20 08:15 09/20/20 13:25 09/20/20 18:25 White Blood Count 4.1 10^3/uL Red Blood Count 4.35 10^6/uL Hemoglobin 13.6 g/dL Hematocrit 43.0 % Mean Corpuscular Volume 98.9 fL Mean Corpuscular Hemoglobin 31.3 pg Mean Corpuscular Hemoglobin Concent 31.6 g/dL Red Cell Distribution Width 15.5 % Platelet Count 179 10^3/uL Mean Platelet Volume 11.0 fL Neutrophils (%) (Auto) 44.4 % Lymphocytes (%) (Auto) 33.4 % Monocytes (%) (Auto) 15.5 % Neutrophils # (Auto) 1.8 10^3/uL Lymphocytes # (Auto) 1.38 10^3/uL1 Monocytes # (Auto) 0.6 10^3/uL Absolute Immature Granulocyte (auto 0.01 10^3 u/L Absolute Eosinophils (auto) 0.2 10^3/uL Immature Granulocytes % 0.20 % Eosinophils % 5.8 % Basophils % 0.7 % Basophils # 0.0 10^3/uL Sodium Level 134 mmol/L Potassium Level 4.6 mmol/L Chloride Level 100.0 mmol/L Carbon Dioxide Level 30.8 mmol/L Anion Gap 7.8 Blood Urea Nitrogen 23 mg/dL Creatinine 1.41 mg/dL Estimated GFR () 60.8 Est GFR (CKD-EPI)(Non-Afr [place]) 50.3 BUN/Creatinine Ratio 16.0 Glucose Level 118 mg/dL Calcium Level 8.3 mg/dL Total Bilirubin 0.7 mg/dL Aspartate Amino Transf (AST/SGOT) 31 U/L Alanine Aminotransferase (ALT/SGPT) 21 U/L Alkaline Phosphatase 75 U/L Troponin I 0.42 ng/mL Total Protein 6.5 g/dL Albumin 3.1 g/dL Globulin 3.4 Albumin/Globulin Ratio 0.911 Triglycerides Level 63 mg/dL Cholesterol Level 162 mg/dL LDL Cholesterol, Calculated 64.4 VLDL Cholesterol, Calculated 12.6 HDL Cholesterol 85 mg/dL Cholesterol Ratio (LDL/HDL) 0.7 Cholesterol/HDL Ratio 1.459141 Activated Partial Thromboplast Time 30.3 SEC 32.7 SEC 34.2 SEC Test 09/20/20 21:30 09/20/20 22:28 09/21/20 02:15 09/21/20 04:55 Troponin I 0.16 ng/mL 0.17 ng/mL Activated Partial Thromboplast Time 29.0 SEC 32.9 SEC White Blood Count 4.4 10^3/uL Red Blood Count 4.06 10^6/uL Hemoglobin 12.6 g/dL Hematocrit 40.7 % Mean Corpuscular Volume 100.2 fL Mean Corpuscular Hemoglobin 31.0 pg Mean Corpuscular Hemoglobin Concent 31.0 g/dL Red Cell Distribution Width 15.4 % Platelet Count 150 10^3/uL Mean Platelet Volume 11.0 fL Neutrophils (%) (Auto) 60.4 % Lymphocytes (%) (Auto) 21.1 % Monocytes (%) (Auto) 17.6 % Neutrophils # (Auto) 2.6 10^3/uL Lymphocytes # (Auto) 0.92 10^3/uL1 Monocytes # (Auto) 0.8 10^3/uL Absolute Immature Granulocyte (auto 0.01 10^3 u/L Absolute Eosinophils (auto) 0.0 10^3/uL Immature Granulocytes % 0.20 % Eosinophils % 0.0 % Basophils % 0.7 % Basophils # 0.0 10^3/uL Sodium Level 137 mmol/L Potassium Level 4.0 mmol/L Chloride Level 104.0 mmol/L Carbon Dioxide Level 28.7 mmol/L Anion Gap 8.3 Blood Urea Nitrogen 17 mg/dL Creatinine 0.77 mg/dL Estimated GFR () 122.3 Est GFR (CKD-EPI)(Non-Afr [place]) 101.1 BUN/Creatinine Ratio 22.0 Glucose Level 112 mg/dL Calcium Level 7.5 mg/dL Total Bilirubin 0.4 mg/dL Aspartate Amino Transf (AST/SGOT) 20 U/L Alanine Aminotransferase (ALT/SGPT) 20 U/L Alkaline Phosphatase 65 U/L Total Protein 6.3 g/dL Albumin 3.0 g/dL Globulin 3.3 Albumin/Globulin Ratio 0.909 Current Medications Medications (Trade) Dose Ordered Sig/Gala PRN Reason Start Time Stop Time Status Last Admin Albuterol/ Ipratropium (Duo 0.5-3(2.5) Mg/3 ml) 3 ml RTQ4 PRN Shortness of breath/wheezing 09/20/20 04:00 10/20/20 03:59 Aspirin (Aspirin) 81 mg DAILY 09/20/20 09:00 10/20/20 08:59 09/20/20 10:19 Atorvastatin Calcium (Lipitor) 20 mg HS 09/20/20 21:00 10/20/20 20:59 09/20/20 21:00 Carvedilol (Coreg) 12.5 mg BID 09/20/20 21:00 10/20/20 20:59 09/20/20 21:00 Folic Acid (Folic Acid) 1 mg DAILY 09/20/20 09:00 10/20/20 08:59 09/20/20 10:19 Heparin Sodium/ Dextrose 500 ml @ 0 mls/hr TITRATE 09/20/20 03:00 10/20/20 02:59 09/20/20 04:26 Hydromorphone HCl (Dilaudid) 0.5 mg Q6HR PRN PAIN 7 - 10 09/20/20 13:30 10/20/20 13:29 09/21/20 01:30 Lisinopril (Zestril) 20 mg DAILY 09/21/20 09:00 10/21/20 08:59 Lorazepam (Ativan) 1 mg Q4H PRN CIWA score >8 09/20/20 04:00 10/20/20 03:59 09/21/20 02:40 Morphine Sulfate (Morphine Sulfate) 2 mg Q4H PRN PAIN 4 - 6 09/20/20 13:30 10/20/20 13:29 09/21/20 01:52 Thiamine HCl (Thiamine HCl) 100 mg DAILY 09/20/20 09:00 10/20/20 08:59 09/20/20 10:19 LEVEL 1 SEPSIS INFECTION CRITE: Cough/Shortness of Breath, Recent Invasive Procedure LEVEL 2-SIRS (LIST ALL THAT AP: None/Not assessed Cardiovascular Evidence: Not Assessed or None Hematologic Evidence: None/Not assessed Hepatic Evidence: None/Not assessed Metabolic Evidence: None/Not assessed Neurological Evidence: None/Not assessed Respiratory Evidence: Need for O2 to keep>90%, O2 SAT<90room air Renal Evidence: None/Not assessed O2 Sat by Pulse Oximetry: 95 Oxygen Flow Rate: 2.00 Plan Assessment NSTEMI Paroxysmal A. fib hypertension hyperlipidemiat l Discharge Date: Sep 22, 2020 Discharge Disposition: Stable Plan 64-year-old male who was transferred from the [facility] to [facility] after he initially presented with atrial fibrillation with rapid ventricular response. He chemically converted after administration of digoxin in the [facility]. He was noted to have spilled troponins and so was transferred here for evaluation. He has a known history of CAD with multiple PCIs in the past, x7 stents. Patient was seen by technology sales consultant, patient underwent left heart cath: Assessment and recommendations as per technology sales consultant:1. Severe stenosis (80%) of the obtuse marginal 1 artery, status post successful percutaneous coronary intervention with a drug-eluting stent. 2. Selective coronary angiography. 3. Left ventriculography. 4. Left ventricular ejection fraction of 45%. 5. Left ventricular end-diastolic pressure of 10. 6. Ischemic cardiomyopathy. 7. Hemostasis established using a TR band. RECOMMENDATIONS: The patient is to remain on dual antiplatelet therapy as well as statin therapy going forward. Lifestyle modification factors including alcohol cessation have been strongly advised. He can be discharged home tomorrow from a cardiac standpoint to follow up with me in the office in 2 to 3 weeks. Today patient is feeling fine. Denies chest pain. Patient will be discharged home and follow-up in technology sales consultant office in 2 to 3 weeks. Patient will be discharged home. Patient discharged in stable condition. Activity As per technology sales consultant recommendation.t Diet heart healthy. GERMAN HOANG MD Sep 22, 2020 11:03
--- NOTE | 2020-09-22 11:45 | NUR ---
DISCHARGE DISCHARGE INSTRUCTIONS GIVEN TO PT BOTH VERBALLY AND WRITTEN AT THIS TIME. PT EDUCATED OVER IMPORTANCE OF FOLLOW UP APPOINTMENT WITH DR. ADAME, AND NEW RX'S, INDICATIONS OF USE AND POSSIBLE S/E, PT VERBALIZED UNDERSTANDING WITH NO QUESTIONS OR CONCERNS. PT EDUCATED OVER NO STRENUOUS ACTIVITY UNTIL CLEARED BY WENDI, VERBALIZED UNDERSTANDING. BOTH IV'S REMOVED VIA ASEPTIC TECHNIQUE, CATH TIP STILL INTACT ON BOTH, PT TOLERATED WELL. PT WHEELED OFF OF UNIT ACCOMPANIED BY THIS NURSE TO PRIVATE AUTO ACCOMPANIED BY PT'S SPOUSE, NO S/S OF ACUTE DISTRESS NOTED. RELINQUISHED CARE OF PT.
--- NOTE | 2020-09-22 13:50 | PRM.PN ---
Subjective Subjective Date: Sep 22, 2020 Time: 10:45 Subjective Pt is resting comfortably . He denies any chest pain, shortness of breath or palpitations. Review of Systems Constitutional: No: Fever, Chills, Sweats Eyes: No: Pain, Eyelid inflammation ENT: No: Throat pain, Throat swelling Respiratory: No: Cough, Shortness of breath, SOB with excertion Cardiovascular: No: Chest Pain, Palpitations, Orthopnea Gastrointestinal: No: Nausea, Vomiting, Abdominal Pain Genitourinary: No Dysuria, No Frequency, No Incontinence Musculoskeletal: No: neck pain, back pain Skin: No: Rash, Lesions Neurological: No: Weakness, Change in speech Allergies: Coded Allergies: No Known Allergies (Unverified , 09/21/20) Scheduled Aspirin (Aspirin), 81 MG PO DAILY Atorvastatin 20MG (Lipitor 20MG), 20 MG PO HS Carvedilol 12.5MG (Coreg 12.MG), 12.5 MG PO BID Clopidogrel Bisulfate (Clopidogrel), 75 MG PO DAILY Lisinopril (Lisinopril), 20 MG PO DAILY [Folic Acid], 1 MG PO DAILY [Thiamine Hcl], 100 MG PO DAILY Objective Vitals and I/O Vital Sign - Last 24 Hours 09/21/20 09/21/20 09/21/20 09/21/20 13:30 13:45 14:00 14:15 Pulse 76 74 70 64 Resp 13 13 13 13 B/P (MAP) 150/87 (108) 154/77 (102) 142/66 (91) 123/60 (81) Pulse Ox 96 96 96 96 09/21/20 09/21/20 09/21/20 09/21/20 14:30 14:45 15:00 15:15 Pulse 65 60 60 60 Resp 11 13 15 24 B/P (MAP) 147/80 (102) 139/74 (95) 138/78 (98) 132/79 (96) Pulse Ox 93 96 98 97 09/21/20 09/21/20 09/21/20 09/21/20 15:30 15:45 16:00 16:14 Temp 97.7 Pulse 60 66 68 69 Resp 17 29 19 25 B/P (MAP) 139/83 (101) 139/72 (94) 154/95 (114) Pulse Ox 96 93 93 89 09/21/20 09/21/20 09/21/20 09/21/20 16:15 16:21 16:30 16:45 Pulse 65 59 56 67 Resp 17 25 19 12 B/P (MAP) 151/88 (109) 130/85 (100) 140/72 (94) Pulse Ox 93 89 93 97 09/21/20 09/21/20 09/21/20 09/21/20 17:00 17:15 17:30 19:30 Pulse 54 65 55 Resp 27 16 16 B/P (MAP) 160/99 (119) 157/52 (87) 158/75 (102) Pulse Ox 96 97 96 O2 Delivery Room Air O2 Flow Rate 2.00 09/21/20 09/21/20 09/21/20 09/21/20 20:00 21:00 21:00 23:00 Temp 98.5 Pulse 60 65 Resp 18 B/P (MAP) 105/59 (74) 177/82 Pulse Ox 98 O2 Delivery Nasal Cannula Room Air O2 Flow Rate 2.00 09/21/20 09/22/20 09/22/20 09/22/20 23:00 00:35 00:35 00:50 Temp 98.2 Pulse 14 68 68 68 Resp 16 18 18 23 B/P (MAP) 101/66 (78) Pulse Ox 98 94 95 93 O2 Delivery S/T FiO2 40 09/22/20 09/22/20 09/22/20 09/22/20 02:00 03:00 03:00 04:00 Pulse 65 60 67 Resp 21 24 22 B/P (MAP) 132/79 (96) Pulse Ox 95 97 94 O2 Delivery S/T Room Air S/T O2 Flow Rate 2.00 FiO2 40 40 09/22/20 09/22/20 09/22/20 09/22/20 05:06 07:30 08:15 08:30 Temp 98.6 Pulse 14 55 66 Resp 16 18 14 B/P (MAP) 101/65 (77) 161/84 (109) 160/91 (114) 171/99 (123) Pulse Ox 98 96 90 09/22/20 09/22/20 09/22/20 09/22/20 08:34 08:35 08:42 08:45 Pulse 60 70 Resp 11 B/P (MAP) 161/84 161/84 154/94 (114) Pulse Ox 94 O2 Delivery Room Air O2 Flow Rate 2.00 09/22/20 09/22/20 09/22/20 09/22/20 09:00 09:15 09:30 09:42 Pulse 80 64 69 65 Resp 15 16 22 18 B/P (MAP) 145/71 (95) 142/86 (104) 148/51 (83) Pulse Ox 92 95 96 94 O2 Delivery Nasal Cannula O2 Flow Rate 2.00 09/22/20 09/22/20 09/22/20 09/22/20 09:45 10:00 10:15 10:30 Pulse 63 59 59 57 Resp 22 16 16 16 B/P (MAP) 128/65 (86) 130/60 (83) 112/47 (68) 126/63 (84) Pulse Ox 94 97 96 95 09/22/20 09/22/20 09/22/20 09/22/20 10:45 11:00 11:15 11:46 Pulse 66 67 60 60 Resp 15 19 9 9 B/P (MAP) 140/63 (88) 150/70 (96) 156/94 (114) Pulse Ox 94 93 93 93 O2 Delivery Bi Pap Intake and Output 09/22/20 06:59 Intake Total 1510 ml Output Total 2200 ml Balance -690 ml General: Alert, Oriented X3 HEENT: Atraumatic, PERRLA Neck: Supple, No JVD Lungs: Clear to auscultation, Normal air movement Heart: Regular rate, Normal S1, Normal S2 Abdomen: Normal bowel sounds, Soft, No tenderness Extremities: No clubbing, No cyanosis Skin: No breakdown Neuro: Normal speech Psych/Mental Status: Mental status NL, Mood NL All Results(Lab/Rad) Laboratory Tests Test 09/20/20 13:25 09/20/20 18:25 09/20/20 21:30 09/20/20 22:28 Activated Partial Thromboplast Time 32.7 SEC 34.2 SEC 29.0 SEC Troponin I 0.16 ng/mL Test 09/21/20 02:15 09/21/20 04:55 Activated Partial Thromboplast Time 32.9 SEC Troponin I 0.17 ng/mL White Blood Count 4.4 10^3/uL Red Blood Count 4.06 10^6/uL Hemoglobin 12.6 g/dL Hematocrit 40.7 % Mean Corpuscular Volume 100.2 fL Mean Corpuscular Hemoglobin 31.0 pg Mean Corpuscular Hemoglobin Concent 31.0 g/dL Red Cell Distribution Width 15.4 % Platelet Count 150 10^3/uL Mean Platelet Volume 11.0 fL Neutrophils (%) (Auto) 60.4 % Lymphocytes (%) (Auto) 21.1 % Monocytes (%) (Auto) 17.6 % Neutrophils # (Auto) 2.6 10^3/uL Lymphocytes # (Auto) 0.92 10^3/uL1 Monocytes # (Auto) 0.8 10^3/uL Absolute Immature Granulocyte (auto 0.01 10^3 u/L Absolute Eosinophils (auto) 0.0 10^3/uL Immature Granulocytes % 0.20 % Eosinophils % 0.0 % Basophils % 0.7 % Basophils # 0.0 10^3/uL Sodium Level 137 mmol/L Potassium Level 4.0 mmol/L Chloride Level 104.0 mmol/L Carbon Dioxide Level 28.7 mmol/L Anion Gap 8.3 Blood Urea Nitrogen 17 mg/dL Creatinine 0.77 mg/dL Estimated GFR () 122.3 Est GFR (CKD-EPI)(Non-Afr Bulgarian) 101.1 BUN/Creatinine Ratio 22.0 Glucose Level 112 mg/dL Calcium Level 7.5 mg/dL Total Bilirubin 0.4 mg/dL Aspartate Amino Transf (AST/SGOT) 20 U/L Alanine Aminotransferase (ALT/SGPT) 20 U/L Alkaline Phosphatase 65 U/L Total Protein 6.3 g/dL Albumin 3.0 g/dL Globulin 3.3 Albumin/Globulin Ratio 0.909 Current Medications Medications (Trade) Dose Ordered Sig/Gala Route PRN Reason Start Time Stop Time Status Last Admin Dose Admin Heparin Sodium/ Dextrose 500 ml @ STK-MED ONCE IV 09/20/20 03:12 09/20/20 03:12 DC Aspirin (Aspirin) 81 mg DAILY PO 09/20/20 09:00 10/20/20 08:59 09/20/20 10:19 Lorazepam (Ativan) 1 mg Q4H PRN IV CIWA score >8 09/20/20 04:00 10/20/20 03:59 09/21/20 02:40 Thiamine HCl (Thiamine HCl) 100 mg DAILY PO 09/20/20 09:00 10/20/20 08:59 09/20/20 10:19 Folic Acid (Folic Acid) 1 mg DAILY PO 09/20/20 09:00 10/20/20 08:59 09/20/20 10:19 Albuterol/ Ipratropium (Duo 0.5-3(2.5) Mg/3 ml) 3 ml RTQ4 PRN IH Shortness of breath/wheezing 09/20/20 04:00 10/20/20 03:59 Heparin Sodium/ Dextrose 500 ml @ 0 mls/hr TITRATE IV 09/20/20 03:00 10/20/20 02:59 09/20/20 04:26 Thiamine HCl 100 mg/Folic Acid 1 mg/Multivit Infusn,Adult 4,Vit K 10 ml/ Sodium Chloride 1,011.2 ml @ 100 mls/ hr Q10H7M IV 09/20/20 13:30 09/20/20 23:36 DC 09/20/20 13:30 Morphine Sulfate (Morphine Sulfate) 2 mg Q4H PRN IV PAIN 4 - 6 09/20/20 13:30 10/20/20 13:29 09/21/20 01:52 Hydromorphone HCl (Dilaudid) 0.5 mg Q6HR PRN IV PAIN 7 - 10 09/20/20 13:30 10/20/20 13:29 09/21/20 01:30 Carvedilol (Coreg) 12.5 mg BID PO 09/20/20 21:00 10/20/20 20:59 09/20/20 21:00 Lisinopril (Zestril) 20 mg DAILY PO 09/21/20 09:00 10/21/20 08:59 Atorvastatin Calcium (Lipitor) 20 mg HS PO 09/20/20 21:00 10/20/20 20:59 09/20/20 21:00 Lorazepam (Ativan) 2 mg STK-MED ONCE .ROUTE 09/21/20 02:35 09/21/20 02:35 DC Heparin Sodium/ Sodium Chloride 1,500 ml @ ud STK-MED ONCE IV 09/21/20 07:26 09/21/20 07:27 DC Heparin Sodium (Porcine) (Heparin) 5,000 unit STK-MED ONCE .ROUTE 09/21/20 07:26 09/21/20 07:27 DC Fentanyl Citrate (Sublimaze) 50 mcg STK-MED ONCE .ROUTE 09/21/20 07:26 09/21/20 07:27 DC Lidocaine HCl (Xylocaine) 20 mg STK-MED ONCE .ROUTE 09/21/20 07:27 09/21/20 07:27 DC Nitroglycerin/ Dextrose 250 ml @ ud STK-MED ONCE IV 09/21/20 07:27 09/21/20 07:27 DC Fentanyl Citrate (Sublimaze) 50 mcg STK-MED ONCE .ROUTE 09/21/20 10:38 09/21/20 10:39 DC Assessment/Plan Assessment/Plan Assessment/Plan 1. Acute non-ST elevation myocardial infarction. 2. Paroxysmal atrial fibrillation -- currently in normal sinus rhythm. 3. Left ventricular ejection fraction of 45% on 2D echo done this admission. 4. Ischemic cardiomyopathy. 5. Hypertension. 6. Known history of CAD status post multiple PCIs in the past, x7 stents. 7. History of abdominal aortic aneurysm, status post endovascular stent repair. 8. Chronic obstructive pulmonary disease. 9. Depression. 10. Hypothyroidism 11.. Severe stenosis (80%) of the obtuse marginal 1 artery, status post successful percutaneous coronary intervention with a drug-eluting stent. 12. Severe Alcohol abuse--drinks 1 pint of vodka daily Plan Left heart catheterization yesterday revealed: 1. Severe stenosis (80%) of the obtuse marginal 1 artery, status post successful percutaneous coronary intervention with a drug-eluting stent. 2. Selective coronary angiography. 3. Left ventriculography. 4. Left ventricular ejection fraction of 45%. 5. Left ventricular end-diastolic pressure of 10. 6. Ischemic cardiomyopathy. 7. Hemostasis established using a TR band. Dr. Adame: Patient is to remain on dual antiplatelet therapy given recent PCI as well as statin therapy . Lifestyle modification factors including alcohol cessation have been strongly advised. He is stable for discharge from a cardiac standpoint. He has been instructed to follow up with cardiology in 2-3 weeks Not a candidate for NOAC in spite of his history of PAFIB due to his history of severe ETOH abuse. He is a high Fall risk with high risk of bleed on NOAC. This was discussed extensively with the patient and patient's family. They verbalized understanding. MARIMAR COLEY APRN [employer] Sep 22, 2020 13:50 LENA ADAME DO Sep 22, 2020 21:14
== END 2020-09-22 11:45 | disposition home or self-care (01) | DRG 246 ==
LOC: ICU 09-20 00:10
PROVIDERS: ADMIT Internal Medicine; ATTEND Internal Medicine
PROC: 4A023N7 Measurement of Cardiac Sampling and Pressure, Left Heart, Percutaneous Approach (ICD-10-PCS; principal; 2020-09-21)
PROC: 027034Z Dilation of Coronary Artery, One Artery with Drug-eluting Intraluminal Device, Percutaneous Approach (ICD-10-PCS; 2020-09-21)
PROC: B2111ZZ Fluoroscopy of Multiple Coronary Arteries using Low Osmolar Contrast (ICD-10-PCS; 2020-09-21)
PROC: 5A09357 Assistance with Respiratory Ventilation, Less than 24 Consecutive Hours, Continuous Positive Airway Pressure (ICD-10-PCS; 2020-09-21)
PROC: B2151ZZ Fluoroscopy of Left Heart using Low Osmolar Contrast (ICD-10-PCS; 2020-09-21)
PROC: 5A09357 Assistance with Respiratory Ventilation, Less than 24 Consecutive Hours, Continuous Positive Airway Pressure (ICD-10-PCS; 2020-09-22)
DX: T82.855A Stenosis of coronary artery stent, initial encounter (principal); I21.4 Non-ST elevation (NSTEMI) myocardial infarction; I25.10 Atherosclerotic heart disease of native coronary artery without angina pectoris; I10 Essential (primary) hypertension; I25.5 Ischemic cardiomyopathy; I48.0 Paroxysmal atrial fibrillation; E03.9 Hypothyroidism, unspecified; F10.10 Alcohol abuse, uncomplicated; F17.210 Nicotine dependence, cigarettes, uncomplicated; F32.9 Major depressive disorder, single episode, unspecified; Y83.8 Other surgical procedures as the cause of abnormal reaction of the patient, or of later complication, without mention of misadventure at the time of the procedure; M45.9 Ankylosing spondylitis of unspecified sites in spine; J44.9 Chronic obstructive pulmonary disease, unspecified; Z79.82 Long term (current) use of aspirin; Z86.79 Personal history of other diseases of the circulatory system; Z95.5 Presence of coronary angioplasty implant and graft; Z99.81 Dependence on supplemental oxygen; Z79.899 Other long term (current) drug therapy; Y92.89 Other specified places as the place of occurrence of the external cause
CPT/HCPCS: 36415; 80053; 80061; 84484; 85025; 85730; 93306; 93458; 94640; 94660; 99152; 99153; C1769; C1887; C1894; C9600; G0378; J1170; J1644; J2060; J2250; J3010; J3490; J7030; Q9967; J3411